=== PATIENT | male | born 1990 | race Asian ===

== ENCOUNTER 2022-12-08 03:11 | Emergency (ER) | payer MEDICAID, OTHER ==
[~2022-12-08] VITALS: Ht 165.1 cm; Wt 65.0 kg
[2022-12-08] MEDS ORDERED: METHOCARBAMOL 500MG TABLET PO ONE (05:30)
[2022-12-08] MEDS ORDERED: IBUPROFEN 400MG TABLET PO ONE (05:30)
[2022-12-08 05:37] VITALS: BP 117/75
[2022-12-08] MEDS ORDERED: METH-653 MT (06:06)
[2022-12-08] MEDS ORDERED: IBUP-2028 MT (06:06)
== END 2022-12-08 06:39 | disposition home or self-care (01) ==
LOC: ER 03:11
DX: M54.2 Cervicalgia (principal)
CPT/HCPCS: 99283

== ENCOUNTER 2023-01-29 21:20 | Emergency (ER) | payer MEDICAID, OTHER ==
[~2023-01-29] VITALS: Ht 162.6 cm; Wt 75.5 kg
[~2023-01-29 21:20] MED LIST: IBUP-2028 MT; METH-653 MT
[2023-01-29 21:23] VITALS: BP 126/78
[2023-01-29] MEDS ORDERED: AMOX-494 MT (22:08)
[2023-01-29] MEDS ORDERED: FLUT9.9S BOTHNSTRLS (22:08)
== END 2023-01-29 22:32 | disposition home or self-care (01) ==
LOC: ER 21:20
DX: J01.90 Acute sinusitis, unspecified (principal); E11.9 Type 2 diabetes mellitus without complications
CPT/HCPCS: 99283